=== PATIENT | female | born 1960 | race Hispanic/Latino ===

== ENCOUNTER 2016-07-31 14:21 | Emergency (ER) | payer OTHER, SELFPAY ==
[~2016-07-31] VITALS: Ht 167.6 cm; Wt 86.2 kg
[~2016-07-31 14:21] MED LIST: HYDR12.55 PO; IRON325T PO; LOSA25TA8 PO; MIRA3350 PO
[2016-07-31 16:38] LABS: BASO % 0.5 % (0.0-1.0); EOS # 0.1 K/mm3 (0.0-0.50); EOS % 1.1 % (0.0-3.0); LARGE UNSTAINED CELL # 0.1 K/mm3 (0.0-0.4); LARGE UNSTAINED CELL % 2.1 % (0.0-4.0); LYMPH # 2.2 K/mm3 (1.5-4.5); LYMPH % 34.1 % (24.0-44.0); MEAN CORPUSCULAR HEMOGLOBIN 24.8 pg (27.0-33.0); MEAN CORPUSCULAR HGB CONC 31.3 g/dl (32.0-36.5); MEAN CORPUSCULAR VOLUME 79.1 fl (80.0-96.0); MONO # 0.4 K/mm3 (0.0-0.8); MONO % 6.3 % (0.0-5.0); NEUTROPHILS # 3.5 K/mm3 (1.8-7.7); PLATELET COUNT, AUTOMATED 309 k/mm3 (150-450); RED CELL DISTRIBUTION WIDTH 14.6 % (11.5-14.5); WHITE BLOOD COUNT 6.3 K/mm3 (4.0-10.0)
--- NOTE | 2016-07-31 16:41 | REP ---
Clinical: Chest pain. Comparison: 05/17/2015. Findings: The mediastinum and cardiac silhouette are stable and within normal limits for portable technique. The lung hendrix are clear without acute consolidation, effusion, or pneumothorax. Skeletal structures are intact. Impression: Normal portable chest x-ray Signed by Destin Fowler MD 07/31/2016 04:32 P
[2016-07-31 16:42] LABS: ANION GAP 5 MEQ/L (8-16); BLOOD UREA NITROGEN 14 MG/DL (7-18); CALCIUM LEVEL 8.6 MG/DL (8.5-10.1); CARBON DIOXIDE LEVEL 28 MEQ/L (21-32); CHLORIDE LEVEL 106 MEQ/L (98-107); CREATININE FOR GFR 0.73 MG/DL (0.55-1.02); GLOMERULAR FILTRATION RATE > 60.0 (>51); GLUCOSE, FASTING 76 MG/DL (70-105); POTASSIUM SERUM 4.6 MEQ/L (3.5-5.1); SODIUM LEVEL 139 MEQ/L (136-145)
[2016-07-31 18:20] VITALS: BP 144/85
--- NOTE | 2016-08-01 08:02 | ECGEPIP ---
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
--- NOTE | 2016-08-01 08:09 | ECGEPIP ---
Stationary ECG Study 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
== END 2016-07-31 18:22 | disposition home or self-care (01) ==
LOC: M ED 17:15
DX: R07.89 Other chest pain (principal); I10 Essential (primary) hypertension; Z79.899 Other long term (current) drug therapy

== ENCOUNTER → 2016-10-11 | Outpatient (CLI) | payer OTHER, SELFPAY ==
--- NOTE | 2016-10-11 19:02 | REP ---
Left clavicle: 10/11/2016: Clinical history: Pain. Two views of the clavicle show the AC joint without widening or elevation. There is no fracture or focal lesion of the clavicle. There is a bone island in the humeral head. Visualized scapula and ribs intact. Impression: 1. Negative right clavicle for fracture or focal bone lesion or other acute finding. Signed by Myke Chicas MD 10/11/2016 10:30 P
--- NOTE | 2016-10-11 19:05 | REP ---
Left shoulder, complete: 10/11/2016: Comparison: Humerus and clavicle x-rays this date. Clinical history: Acute pain of the left shoulder. Findings AC joint clavicle grossly intact. Scapula, ribs and glenohumeral joint without acute finding. There is no subluxation, dislocation. Small bone island in the humeral head. Sclerotic appearance and thickening of the cortex of the anteromedial humerus near the pectoralis insertion. Remainder the visible humeral shaft unremarkable. Impression: 1. No fracture, subluxation, AC or glenohumeral joint degenerative change. A benign bone island seen in the left humeral head. 2. This focal thickening of the anterior cortex proximal humerus with subtle lucency within it. This is near the insertion of the pectoralis muscle. This is not definitely an acute finding, but on her portable chest 05/17/2015, I cannot see definite evidence of this finding. This represents thickened periosteal reaction from tug lesion or other pathology. Recommend orthopedic follow-up to determine further evaluation and workup. She may eventually need routine MRI without and with contrast. Signed by Myke Chicas MD 10/11/2016 10:31 P
--- NOTE | 2016-10-11 19:16 | REP ---
Left hand complete: 10/11/2016: No prior study. Clinical history: Left hand pain. Distal radius and ulna show lucency in the radial styloid at its base suggesting a bone cyst that is sharply defined and sclerotic in the sharply defined sclerotic. No expansion of the bone or destructive lesion. Carpal bones and their joint spaces are preserved. There is extensive degenerative change at the first CMC joint with marginal osteophytes. Fragmentation of bone presenting a severe osteoarthritic change. The other metacarpals and the CMC joints were grossly intact. The MCP and IP joints intact. Impression: 1. 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 I do not see visible or displaced acute fracture. Some bone fragments adjacent to the first CMC joint are noted as portion of this advanced degenerative process. Signed by Myke Chicas MD 10/11/2016 10:31 P
--- NOTE | 2016-10-11 19:20 | REP ---
Left humerus, complete: 10/11/2016. Comparison: Left shoulder this date, portable chest 05/17/2015. Two views of the humerus shows a zone of solid periosteal reaction with smooth margins and a subtle lucency within it. This is along the anterior proximal humeral cortex. No destruction of the cortex or endosteal scalloping. There is a small bone island in the humeral head. The shaft of the humerus and distal humerus are otherwise normal. Impression: 1. Solid periosteal reaction in the proximal humeral shaft anteriorly. It may represent a tug lesion of the pectoralis insertion or other pathology such as osteoid osteoma among several possibilities. It has nonaggressive features. Orthopedic followup to direct further workup and evaluation is suggested. Signed by Myke Chicas MD 10/11/2016 10:31 P
--- NOTE | 2016-10-11 20:52 | REP ---
LEFT FEMUR SERIES, COMPLETE: 10/11/2016: Clinical history: Pain. Findings: There were no prior studies. Four view show the femoral shaft intact. There is a fabella behind the lateral femoral condyle which is an anatomic variation. Hip and knee show no fracture, erosion or avulsion. Very minimal degenerative spurs at the margins are seen at each joint. No abnormal soft tissue calcification. Impression: 1. No fracture, destructive lesion or other acute bony finding about the femur. Very minimal degenerative change is seen. Signed by Myke Chicas MD 10/11/2016 10:38 P
== END ==
LOC: M LRY 17:31
PROVIDERS: ATTEND Physician Assistant
DX: M89.8X1 Other specified disorders of bone, shoulder (principal); M79.642 Pain in left hand; M79.622 Pain in left upper arm; M25.512 Pain in left shoulder; M85.442 Solitary bone cyst, left hand; M19.042 Primary osteoarthritis, left hand

== ENCOUNTER 2017-01-27 21:59 | Emergency (ER) | payer OTHER ==
[~2017-01-27] VITALS: Ht 167.6 cm; Wt 90.0 kg
[2017-01-27 22:58] LABS: BASO % 0.5 % (0.0-1.0); EOS # 0.1 10^3/uL (0.0-0.50); EOS % 0.6 % (0.0-3.0); IMMATURE GRANULOCYTE % 0.4 % (0-0); LYMPH # 2.9 10^3/uL (1.5-4.5); MEAN CORPUSCULAR HEMOGLOBIN 24.2 pg (27.0-33.0); MEAN CORPUSCULAR HGB CONC 30.6 g/dl (32.0-36.5); MEAN CORPUSCULAR VOLUME 79.1 fl (80.0-96.0); MONO # 0.4 10^3/uL (0.0-0.8); MONO % 4.7 % (0.0-5.0); NEUTROPHILS # 4.8 10^3/uL (1.8-7.7); NEUTROPHILS % 58.8 % (36.0-66.0); PLATELET COUNT, AUTOMATED 359 10^3/uL (150-450); RED CELL DISTRIBUTION WIDTH 16.7 % (11.5-14.5); WHITE BLOOD COUNT 8.2 10^3/uL (4.0-10.0)
[2017-01-27] MEDS ORDERED: ASPIRIN 81 MG CHEW TABLET PO ONE (23:00)
[2017-01-27] MEDS ORDERED: hydroCHLOROthiazide 12.5 MG CAPSULE PO ONE (23:00)
[2017-01-27] MEDS: NITROGLYCERIN 0.4 MG SUBL TABLET SL PRN ×3 (23:08→23:18)
[2017-01-27 23:16] LABS: ALBUMIN 3.8 GM/DL (3.2-5.2); ALBUMIN/GLOBULIN RATIO 0.88 (1.00-1.93); ALKALINE PHOSPHATASE 131 U/L (45-117); ALT/SGPT 23 U/L (12-78); ANION GAP 5 MEQ/L (8-16); AST/SGOT 16 U/L (7-37); BILIRUBIN,DIRECT < 0.1 MG/DL (0.0-0.2); BILIRUBIN,TOTAL 0.2 MG/DL (0.2-1.0); BLOOD UREA NITROGEN 12 MG/DL (7-18); CARBON DIOXIDE LEVEL 28 MEQ/L (21-32); CHLORIDE LEVEL 106 MEQ/L (98-107); CREATININE FOR GFR 0.66 MG/DL (0.55-1.02); GLOMERULAR FILTRATION RATE > 60.0 (>51); GLUCOSE, FASTING 123 MG/DL (70-105); POTASSIUM SERUM 3.5 MEQ/L (3.5-5.1); SODIUM LEVEL 139 MEQ/L (136-145); TOTAL PROTEIN 8.1 GM/DL (6.4-8.2)
[2017-01-27] MEDS ORDERED: ACETAMINOPHEN TAB 650MG DOSE (2X325MG) PO ONE (23:45)
[2017-01-28 05:35] VITALS: BP 150/79
--- NOTE | 2017-01-28 05:50 | ECGEPIP ---
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
--- NOTE | 2017-01-28 05:51 | ECGEPIP ---
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
--- NOTE | 2017-01-28 07:42 | REP ---
Clinical: Chest pain . Comparison: 07/31/2016 . Technique: PA and lateral. Findings: The mediastinum and cardiac silhouette are normal. The lung hendrix are clear and without acute consolidation, effusion, or pneumothorax. The skeletal structures are intact and normal. Impression: 1. No acute cardiopulmonary process. Signed by Destin Fowler MD 01/28/2017 07:34 A
== END 2017-01-28 05:51 | disposition home or self-care (01) ==
LOC: M ED 21:59
DX: R07.9 Chest pain, unspecified (principal); I10 Essential (primary) hypertension

== ENCOUNTER → 2017-04-10 | Outpatient (REF) | payer OTHER, MEDICAID ==
[2017-04-10 14:04] LABS: ALBUMIN 3.7 GM/DL (3.2-5.2); ALBUMIN/GLOBULIN RATIO 0.93 (1.00-1.93); ALKALINE PHOSPHATASE 131 U/L (45-117); ALT/SGPT 21 U/L (12-78); ANION GAP 9 MEQ/L (8-16); AST/SGOT 16 U/L (7-37); BILIRUBIN,TOTAL 0.3 MG/DL (0.2-1.0); BLOOD UREA NITROGEN 10 MG/DL (7-18); CALCIUM LEVEL 8.8 MG/DL (8.5-10.1); CARBON DIOXIDE LEVEL 24 MEQ/L (21-32); CHLORIDE LEVEL 106 MEQ/L (98-107); CHOLESTEROL LEVEL 179 MG/DL (<200); CREATININE FOR GFR 0.57 MG/DL (0.55-1.30); GLOMERULAR FILTRATION RATE > 60.0 (>51); GLUCOSE, FASTING 82 MG/DL (70-100); HDL CHOLESTEROL 50 MG/DL (>40); NON-HDL-C 129 MG/DL; POTASSIUM SERUM 4.6 MEQ/L (3.5-5.1); SODIUM LEVEL 139 MEQ/L (136-145); TOTAL PROTEIN 7.7 GM/DL (6.4-8.2); TRIGLYCERIDES LEVEL 85 MG/DL (<150)
== END ==
LOC: M LAB REF 12:41
DX: Z00.01 Encounter for general adult medical examination with abnormal findings (principal); E78.5 Hyperlipidemia, unspecified

== ENCOUNTER 2018-01-30 20:48 | Emergency (ER) | payer OTHER, MEDICAID ==
[2018-01-30] MEDS: IBUPROFEN 800 MG TAB PO (21:28)
== END 2018-01-30 22:42 | disposition home or self-care (01) ==
LOC: M ED 20:48
DX: M72.2 Plantar fascial fibromatosis (principal); X50.1XXA Overexertion from prolonged static or awkward postures, initial encounter; Y92.480 Sidewalk as the place of occurrence of the external cause; I10 Essential (primary) hypertension; M77.32 Calcaneal spur, left foot; I48.91 Unspecified atrial fibrillation; Z79.899 Other long term (current) drug therapy
CPT/HCPCS: 73650

== ENCOUNTER 2018-08-24 21:09 | Emergency (ER) | payer OTHER ==
[~2018-08-24] VITALS: Ht 167.6 cm; Wt 86.4 kg
[~2018-08-24 21:09] MED LIST changes: +IBUP80TA PO; +LOSA25TA14 PO; -LOSA25TA8 PO; +LOSA50TA88; +METO1TAB87
[2018-08-24] MEDS ORDERED: methylPREDNISolone INJ 125 MG/2 ML VIAL (J2930) IV ONE (21:45)
[2018-08-24 22:09] LABS: BASO % 0.4 % (0.0-1.0); EOS # 0.1 10^3/uL (0.0-0.50); EOS % 1.1 % (0.0-3.0); HEMATOCRIT 40.5 % (36.0-47.0); HEMOGLOBIN 13.1 g/dl (12.0-15.5); LYMPH % 38.1 % (24.0-44.0); MEAN CORPUSCULAR HEMOGLOBIN 29.5 pg (27.0-33.0); MEAN CORPUSCULAR HGB CONC 32.3 g/dl (32.0-36.5); MEAN CORPUSCULAR VOLUME 91.2 fl (80.0-96.0); MONO # 0.6 10^3/uL (0.0-0.8); MONO % 7.2 % (0.0-5.0); NEUTROPHILS # 4.2 10^3/uL (1.8-7.7); NEUTROPHILS % 53.1 % (36.0-66.0); PLATELET COUNT, AUTOMATED 287 10^3/uL (150-450); RED BLOOD COUNT 4.44 10^6/uL (4.00-5.40); WHITE BLOOD COUNT 7.9 10^3/uL (4.0-10.0)
[2018-08-24 22:23] LABS: PROTHROMBIN TIME 13.3 SECONDS (12.1-14.4)
[2018-08-24 22:24] LABS: PARTIAL THROMBOPLASTIN TIME 28.4 SECONDS (25.4-37.6)
[2018-08-24 22:27] LABS: BLOOD UREA NITROGEN 15 MG/DL (7-18); CALCIUM LEVEL 8.9 MG/DL (8.5-10.1); CARBON DIOXIDE LEVEL 32 MEQ/L (21-32); CHLORIDE LEVEL 104 MEQ/L (98-107); CREATININE FOR GFR 0.92 MG/DL (0.55-1.30); GLOMERULAR FILTRATION RATE > 60.0 (>51); GLUCOSE, FASTING 110 MG/DL (70-100); SODIUM LEVEL 141 MEQ/L (136-145)
--- NOTE | 2018-08-24 23:41 | REPVR ---
EXAM: CT Head Without Contrast EXAM DATE/TIME: 08/24/2018 10:42 PM CLINICAL HISTORY: 58 years old, female; Pain; Headache; Additional info: Headache, left arm parethesias/weakness TECHNIQUE: Imaging protocol: Axial computed tomography images of the head without contrast. Radiation optimization: All CT scans at this facility use at least one of these dose optimization techniques: automated exposure control; mA and/or kV adjustment per patient size (includes targeted exams where dose is matched to clinical indication); or iterative reconstruction. COMPARISON: No relevant prior studies available. FINDINGS: Brain: Normal. No hemorrhage. Unremarkable white matter. No mass effect. Ventricles: Normal. No ventriculomegaly. Bones/joints: Unremarkable. No acute fracture. Sinuses: Visualized sinuses are unremarkable. No fluid levels. Mastoid air cells: Visualized mastoid air cells are well aerated. No mastoid effusion. Soft tissues: Unremarkable. IMPRESSION: No acute intracranial abnormality. Electronically signed by: Tiff Estes On 08/24/2018 23:41:20 PM
--- NOTE | 2018-08-24 23:43 | REPVR ---
EXAM: CT Cervical Spine Without Contrast EXAM DATE/TIME: 08/24/2018 10:42 PM CLINICAL HISTORY: 58 years old, female; Neck pain; Additional info: Headache, left arm parethesias/weakness TECHNIQUE: Imaging protocol: Axial computed tomography images of the cervical spine without contrast. Coronal and sagittal reformatted images were created and reviewed. Radiation optimization: All CT scans at this facility use at least one of these dose optimization techniques: automated exposure control; mA and/or kV adjustment per patient size (includes targeted exams where dose is matched to clinical indication); or iterative reconstruction. COMPARISON: No relevant prior studies available. FINDINGS: Vertebrae: No acute fracture. Normal alignment. Straightening of normal cervical lordosis either secondary to muscular spasm or positioning. Degenerative changes with anterior osteophyte formation at C4-T1. Discs/Spinal canal/Neural foramina: No spinal stenosis. No neural foraminal narrowing. Soft tissues: Unremarkable. Lungs: Lung apices are normal. IMPRESSION: No acute findings. Electronically signed by: Tiff Estes On 08/24/2018 23:43:17 PM
[2018-08-25] MEDS ORDERED: PRED20TA PO (00:30)
[2018-08-25 00:46] VITALS: BP 136/64
--- NOTE | 2018-08-25 07:06 | ECGEPIP ---
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
== END 2018-08-25 00:47 | disposition home or self-care (01) ==
LOC: M ED 21:09
DX: M54.12 Radiculopathy, cervical region (principal); I10 Essential (primary) hypertension; R00.2 Palpitations
CPT/HCPCS: 36415; 70450; 72125; 80048; 85025; 85610; 85730; 93005; 96374; 99285; J2930

== ENCOUNTER 2020-05-10 14:55 | Emergency (ER) | payer OTHER ==
[~2020-05-10] VITALS: Ht 167.6 cm; Wt 95.7 kg
[~2020-05-10 14:55] MED LIST changes: +PRED20TA PO
--- NOTE | 2020-05-10 15:31 | REP ---
INDICATION: trauma COMPARISON: None. TECHNIQUE: Internal rotation, external rotation, and Y view. FINDINGS: No acute fracture or dislocation. The acromioclavicular and glenohumeral joints are intact. Surrounding soft tissues are unremarkable. IMPRESSION: No acute fracture or dislocation. <Electronically signed by Destin Fowler > 05/10/20 [id number]
[2020-05-10 15:52] VITALS: BP 178/84
[2020-05-10] MEDS ORDERED: ACETAMINOPHEN 500 MG TAB PO ONE (16:10)
[2020-05-10] MEDS ORDERED: TIZA4CAP PO (16:52)
[2020-05-10] MEDS ORDERED: IBUP-1022 PO (16:52)
[2020-05-10] MEDS ORDERED: AMOX500C PO (16:52)
[2020-05-10] MEDS ORDERED: MAGICMW SSP (16:53)
== END 2020-05-10 17:09 | disposition home or self-care (01) ==
LOC: M ED 14:55
DX: S49.92XA Unspecified injury of left shoulder and upper arm, initial encounter (principal); X50.1XXA Overexertion from prolonged static or awkward postures, initial encounter; Y92.9 Unspecified place or not applicable; Y93.9 Activity, unspecified; Y99.9 Unspecified external cause status; J02.0 Streptococcal pharyngitis; I10 Essential (primary) hypertension
CPT/HCPCS: 73030; 87880; 99284; U0003

== ENCOUNTER → 2020-09-27 | Outpatient (CLI) | payer OTHER ==
[~2020-09-27] MED LIST changes: +AMOX500C PO; +IBUP-1022 PO; +MAGICMW SSP; +PROHANCE 279.3MG/ML 15ML VIAL As Ordered ONE; +PROHANCE 279.3MG/ML 5ML VIAL As Ordered ONE; +TIZA4CAP PO
--- NOTE | 2020-09-27 15:17 | REP ---
INDICATION: LT SHOULDER TRAUMA W/ PAIN ? RCT. COMPARISON: Radiographs 05/10/2020. TECHNIQUE: Coronal oblique T1, T2 fat sat, sagittal oblique T2 fat sat, axial T2 fat sat, gradient echo. T1 fat-sat images are performed prior to and following the intravenous administration of 17 mL ProHance. FINDINGS: Rotator cuff: There is extensive tendinopathy, with an extensive undersurface tear of the supraspinatus tendon. I do not see definite extension through the bursal surface of the tendon. There is a partial undersurface tear of the infraspinatus tendon. There is a partial tear of the subscapularis tendon. Acromioclavicular joint: There are mild hypertrophic degenerative changes of the acromioclavicular joint. There is mild fluid in the joint. Acromion: Type 2 Biceps Tendon: In bicipital groove, no tenosynovitis. Hill Sach's deformity: None. Deltoid muscle: No abnormal signal. Biceps labral complex: There is tear of the base of the biceps labral complex. Labrum: There is a diffuse SLAP tear. Cartilage: No defects. Bone marrow: There are scattered subcortical cysts in the humeral head. There is no bone marrow edema. Joint fluid: No effusion. There is a 1 cm benign cortical lesion of the medial proximal humeral diaphysis approximately 1 cm in diameter. The cortex is diffusely intact and low in signal. There is no associated enhancement or edema. IMPRESSION: Extensive tendinopathy supraspinatus tendon with an extensive undersurface tear. Partial undersurface tear infraspinatus tendon. Partial tear subscapularis tendon. Mild hypertrophic degenerative change acromioclavicular joint with a type 2 acromion. Diffuse SLAP tear also involves the base of the biceps labral complex. There is a 1 cm benign cortical lesion of the proximal shaft of the humerus medially measuring 1 cm in diameter. <Electronically signed by Bobo Cummins > 09/27/20 [id number]
== END ==
LOC: M RAD 12:47
PROVIDERS: ATTEND Orthopaedic Surgery
DX: M75.32 Calcific tendinitis of left shoulder (principal)

== ENCOUNTER 2020-11-21 11:42 | Emergency (ER) | payer MEDICAID, OTHER ==
[~2020-11-21] VITALS: Ht 167.6 cm; Wt 92.5 kg
[~2020-11-21 11:42] MED LIST changes: -PROHANCE 279.3MG/ML 15ML VIAL As Ordered ONE; -PROHANCE 279.3MG/ML 5ML VIAL As Ordered ONE
[2020-11-21] MEDS ORDERED: CHLO50TA (17:01)
[2020-11-21 17:46] LABS: RSV AMPLIFICATION NEGATIVE (NEGATIVE)
[2020-11-21] MEDS ORDERED: AMOX500C PO (18:42)
[2020-11-21 18:49] VITALS: BP 137/60
== END 2020-11-21 18:48 | disposition home or self-care (01) ==
LOC: M ED 11:42
DX: J02.0 Streptococcal pharyngitis (principal); R05 Cough; Z20.822 Contact with and (suspected) exposure to COVID-19; I10 Essential (primary) hypertension

== ENCOUNTER → 2020-12-12 | Outpatient (CLI) | payer OTHER ==
[~2020-12-12] MED LIST changes: +CHLO50TA
--- NOTE | 2020-12-12 14:50 | REP ---
INDICATION: PAIN IN RIGHT ANKLE AND JOINTS OF RIGHT FOOT COMPARISON: None. TECHNIQUE: AP, lateral, bilateral oblique views. FINDINGS: Osseous structures, joint spaces, and surrounding soft tissues are relatively age-appropriate and within normal limits. Mild soft tissue swelling cannot be excluded. Ankle mortise appears intact. Lateral view demonstrates moderate calcaneal heel spur. IMPRESSION: Relatively age-related changes as described above. Questionable mild soft tissue swelling. <Electronically signed by Destin Fowler > 12/12/20 [id number]
--- NOTE | 2020-12-12 14:56 | REP ---
INDICATION: PAIN IN RIGHT ANKLE AND JOINTS OF RIGHT FOOT COMPARISON: None. TECHNIQUE: AP, lateral, coned-down views of the lumbar spine. FINDINGS: Alignment and lordosis maintained without acute fracture/compression injury or subluxation. Moderate/early advanced multilevel degenerative changes includes endplate sclerosis, disc space narrowing, osteophytosis and facet hypertrophy. IMPRESSION: 1. No acute fracture / compression injury or subluxation. 2. Moderate/early advanced multilevel degenerative spondylosis. <Electronically signed by Destin Fowler > 12/12/20 [id number]
--- NOTE | 2020-12-12 14:57 | REP ---
INDICATION: PAIN IN RIGHT ANKLE AND JOINTS OF RIGHT FOOT COMPARISON: None. TECHNIQUE: AP, lateral, bilateral oblique views right foot. FINDINGS: The osseous structures and joint spaces are intact and essentially age-appropriate. Small calcaneal heel spur noted. There is no evidence for acute fracture or dislocation. Surrounding soft tissues are unremarkable. No subcutaneous emphysema or radiodense foreign body. IMPRESSION: Age-appropriate examination. No acute fracture or dislocation. <Electronically signed by Destin Fowler > 12/12/20 [id number]
== END ==
LOC: M RAD 13:56
PROVIDERS: ATTEND Physician Assistant
DX: M25.541 Pain in joints of right hand (principal); M54.59 Other low back pain

== ENCOUNTER → 2021-02-05 | Outpatient (CLI) | payer OTHER ==
[~2021-02-05] MED LIST changes: +LOSA25TA13 PO; -LOSA25TA14 PO; +LOSA50TA28; -LOSA50TA88
== END ==
LOC: M WHC 12:55
PROVIDERS: ATTEND Pediatrics
DX: Z12.31 Encounter for screening mammogram for malignant neoplasm of breast (principal)

== ENCOUNTER → 2021-05-11 | Outpatient (CLI) | payer OTHER | LOC: M RAD 16:19 | PROVIDERS: ATTEND Pediatrics | DX: N89.8 Other specified noninflammatory disorders of vagina (principal) ==

== ENCOUNTER → 2021-05-18 | Outpatient (CLI) | payer OTHER | LOC: M WHC 14:32 | PROVIDERS: ATTEND Pediatrics | DX: Z13.820 Encounter for screening for osteoporosis (principal); M81.0 Age-related osteoporosis without current pathological fracture ==

== ENCOUNTER → 2021-08-15 | Outpatient (REF) | LOC: M PLALAB 10:14 | PROVIDERS: ATTEND Internal Medicine | DX: Z00.00 Encounter for general adult medical examination without abnormal findings (principal) ==

== ENCOUNTER 2021-11-25 20:45 | Emergency (ER) | payer OTHER ==
[~2021-11-25] VITALS: Ht 167.6 cm; Wt 200.0 kg
[2021-11-25] MEDS ORDERED: LOSA50TA28 PO (20:52)
[2021-11-25] MEDS ORDERED: K-TA10TA2 PO (20:52)
[2021-11-25] MEDS ORDERED: MAGN400T2 PO (20:52)
[2021-11-26] MEDS ORDERED: KETOROLAC 60MG 2ML VIAL IM ONE (00:50)
[2021-11-26 01:07] VITALS: BP 125/62
== END 2021-11-26 01:11 | disposition home or self-care (01) ==
LOC: M ED 20:45
DX: M54.50 Low back pain, unspecified (principal); M54.2 Cervicalgia; M25.512 Pain in left shoulder; M25.532 Pain in left wrist; W10.9XXA Fall (on) (from) unspecified stairs and steps, initial encounter
CPT/HCPCS: 70450; 72125; 73030; 96372; 99283; J1885

== ENCOUNTER 2022-03-05 16:29 | Emergency (ER) | payer OTHER ==
[~2022-03-05] VITALS: Ht 167.6 cm; Wt 94.4 kg
[~2022-03-05 16:29] MED LIST changes: +K-TA10TA2 PO; +LOSA50TA28 PO; +MAGN400T2 PO
[2022-03-05 16:30] VITALS: BP 150/76
== END 2022-03-05 19:45 | disposition left against medical advice (07) ==
LOC: M ED 16:29
DX: Z53.21 Procedure and treatment not carried out due to patient leaving prior to being seen by health care provider (principal)

== ENCOUNTER 2022-05-16 11:20 | Emergency (ER) | payer OTHER ==
[~2022-05-16] VITALS: Ht 167.6 cm; Wt 92.7 kg
[~2022-05-16 11:20] MED LIST changes: -AMOX875T2 PO
[2022-05-16] MEDS ORDERED: AMPICILLIN SOD/SULBACTAM SOD 3 GM in D5W MINI-BAG PLUS 100 ML IV ONE (12:30)
[2022-05-16] MEDS ORDERED: NS 1,000 ML IV ONE (12:30)
[2022-05-16] MEDS ORDERED: KETOROLAC 30 MG/ML 1ML VIAL IV ONE (12:30)
[2022-05-16 12:57] LABS: BASO % 0.3 % (0.0-1.0); EOS % 0.3 % (0.0-3.0); HEMATOCRIT 40.5 % (36.0-47.0); LYMPH # 2.3 10^3/uL (1.5-5.0); LYMPH % 19.8 % (24.0-44.0); MEAN CORPUSCULAR HEMOGLOBIN 28.8 pg (27.0-33.0); MEAN CORPUSCULAR HGB CONC 32.1 g/dl (32.0-36.5); MEAN CORPUSCULAR VOLUME 89.8 fl (80.0-96.0); MONO # 0.8 10^3/uL (0.0-0.8); MONO % 6.6 % (2.0-8.0); NEUTROPHILS # 8.5 10^3/uL (1.5-8.5); NEUTROPHILS % 72.6 % (36.0-66.0); PLATELET COUNT, AUTOMATED 309 10^3/uL (150-450); RED BLOOD COUNT 4.51 10^6/uL (4.00-5.40); WHITE BLOOD COUNT 11.8 10^3/uL (4.0-10.0)
[2022-05-16 13:29] LABS: BLOOD UREA NITROGEN 11 MG/DL (9-23); CALCIUM LEVEL 8.9 MG/DL (8.3-10.6); CARBON DIOXIDE LEVEL 32 MMOL/L (20-31); CHLORIDE LEVEL 98 MMOL/L (98-107); CREATININE FOR GFR 0.56 MG/DL (0.55-1.30); GLOMERULAR FILTRATION RATE > 60.0 (>45); GLUCOSE, FASTING 85 MG/DL (74-106); POTASSIUM SERUM 3.6 MMOL/L (3.5-5.1); SODIUM LEVEL 137 MMOL/L (136-145)
[2022-05-16 13:39] LABS: MONO SCRN NEGATIVE (NEGATIVE)
[2022-05-16] MEDS ORDERED: IBUP-1022 PO (14:03)
[2022-05-16] MEDS ORDERED: AMOX875T2 PO (14:03)
[2022-05-16 14:10] VITALS: BP 141/75
== END 2022-05-16 14:13 | disposition home or self-care (01) ==
LOC: M ED 11:20
DX: J03.90 Acute tonsillitis, unspecified (principal)
CPT/HCPCS: 80048; 85025; 86308; 96374; 96375; 99283; J0295; J1100; J1885

== ENCOUNTER → 2022-05-16 | Outpatient (REF) | payer OTHER ==
[~2022-05-16] MED LIST changes: +AMOX875T2 PO
== END ==
LOC: M LAB REF 12:18
PROVIDERS: ATTEND Nurse Practitioner Family
DX: R07.0 Pain in throat (principal)

== ENCOUNTER → 2022-12-11 | Outpatient (REF) | payer OTHER ==
[~2022-12-11] MED LIST changes: +AMOX875T2 PO; -K-TA10TA2 PO; +POTA-165 PO
[2022-12-11 17:40] LABS: BASO # 0.1 10^3/uL (0.0-0.2); BASO % 0.7 % (0.0-1.0); EOS # 0.1 10^3/uL (0.0-0.5); EOS % 1.5 % (0.0-3.0); HEMATOCRIT 40.3 % (36.0-47.0); HEMOGLOBIN 13.5 g/dl (12.0-15.5); LYMPH # 2.6 10^3/uL (1.5-5.0); LYMPH % 34.7 % (24.0-44.0); MEAN CORPUSCULAR HEMOGLOBIN 29.7 pg (27.0-33.0); MEAN CORPUSCULAR HGB CONC 33.5 g/dl (32.0-36.5); MEAN CORPUSCULAR VOLUME 88.8 fl (80.0-96.0); MONO # 0.5 10^3/uL (0.0-0.8); MONO % 7.1 % (2.0-8.0); NEUTROPHILS # 4.1 10^3/uL (1.5-8.5); NEUTROPHILS % 55.9 % (36.0-66.0); PLATELET COUNT, AUTOMATED 316 10^3/uL (150-450); RED BLOOD COUNT 4.54 10^6/uL (4.00-5.40); WHITE BLOOD COUNT 7.4 10^3/uL (4.0-10.0)
[2022-12-11 18:00] LABS: CREATININE, URINE 151.6 MG/DL; MAU/CREAT RATIO 5.9 MCG/MG (0.0-30.0)
[2022-12-11 18:01] LABS: BLOOD UREA NITROGEN 17 MG/DL (9-23); CALCIUM LEVEL 9.5 MG/DL (8.3-10.6); CARBON DIOXIDE LEVEL 32 MMOL/L (20-31); CHLORIDE LEVEL 103 MMOL/L (98-107); CHOLESTEROL LEVEL 175 MG/DL (<200); CHOLESTEROL RISK RATIO 4.14 (<5); CREATININE FOR GFR 0.61 MG/DL (0.55-1.30); GLOMERULAR FILTRATION RATE > 60.0 (>45); GLUCOSE, FASTING 90 MG/DL (74-106); HDL CHOLESTEROL 42.2 MG/DL (>40); LDL CHOLESTEROL 105.2 MG/DL (<100); NON-HDL-C 132.8 MG/DL; POTASSIUM SERUM 3.6 MMOL/L (3.5-5.1); SODIUM LEVEL 140 MMOL/L (136-145); TRIGLYCERIDES LEVEL 138 MG/DL (<150)
[2022-12-11 19:56] LABS: CREATININE, URINE 151.9 MG/DL; MAU/CREAT RATIO 5.9 MCG/MG (0.0-30.0)
== END ==
LOC: M LAB REF 16:19
PROVIDERS: ATTEND Pediatrics
DX: E78.5 Hyperlipidemia, unspecified (principal); I10 Essential (primary) hypertension

== ENCOUNTER 2023-03-06 14:17 | Emergency (ER) | payer OTHER, SELFPAY ==
[~2023-03-06] VITALS: Ht 167.6 cm; Wt 94.4 kg
[2023-03-06] MEDS ORDERED: FLUTISP (14:33)
[2023-03-06 16:02] LABS: RSV AMPLIFICATION NEGATIVE (NEGATIVE)
[2023-03-06 16:31] VITALS: TEMP 97.9
[2023-03-06] MEDS: ACETAMINOPHEN 325 MG TAB PO ONE (16:43)
[2023-03-06 17:36] VITALS: BP 160/82; O2SAT 100
== END 2023-03-06 17:37 | disposition home or self-care (01) ==
LOC: M ED 14:17
DX: B34.9 Viral infection, unspecified (principal); I10 Essential (primary) hypertension; Z79.899 Other long term (current) drug therapy

== ENCOUNTER → 2023-09-15 | Outpatient (CLI) | payer OTHER ==
[~2023-09-15] MED LIST changes: +FLUTISP
[2023-09-15 17:52] LABS: THYROID STIMULATING HORMONE 2.012 uIU/ML (0.55-4.78)
[2023-09-15 17:54] LABS: BLOOD UREA NITROGEN 15 MG/DL (9-23); CALCIUM LEVEL 9.2 MG/DL (8.3-10.6); CARBON DIOXIDE LEVEL 29 MMOL/L (20-31); CHLORIDE LEVEL 107 MMOL/L (98-107); CREATININE FOR GFR 0.63 MG/DL (0.55-1.30); GLOMERULAR FILTRATION RATE > 60.0 (>45); GLUCOSE, FASTING 81 MG/DL (74-106); POTASSIUM SERUM 4.4 MMOL/L (3.5-5.1); SODIUM LEVEL 141 MMOL/L (136-145)
[2023-09-15 18:03] LABS: CREATININE, URINE 152.5 MG/DL; MAU/CREAT RATIO 3.9 MCG/MG (0.0-30.0)
== END ==
LOC: M RAD 14:53
PROVIDERS: ATTEND Pediatrics
DX: M70.61 Trochanteric bursitis, right hip (principal); I10 Essential (primary) hypertension; E78.5 Hyperlipidemia, unspecified; M16.11 Unilateral primary osteoarthritis, right hip

== ENCOUNTER 2023-11-14 11:04 | Emergency (ER) | payer OTHER ==
[~2023-11-14] VITALS: Ht 167.6 cm; Wt 94.3 kg
[2023-11-14 11:04] VITALS: TEMP 97.2
[2023-11-14] MEDS ORDERED: CICL6.6S (11:27)
[2023-11-14] MEDS ORDERED: CETI-24 (11:27)
[2023-11-14] MEDS: LIDOCAINE 1% MDV 20ML VIAL SC ONE (12:00)
[2023-11-14] MEDS: NAPROXEN 250 MG TAB PO ONE (12:42)
[2023-11-14] MEDS: diazePAM 5MG TABLET PO ONE (12:42)
[2023-11-14] MEDS ORDERED: LIDO5DIS41 TD (13:29)
[2023-11-14] MEDS ORDERED: NAPR-837 PO (13:29)
[2023-11-14] MEDS ORDERED: METH-1164 PO (13:29)
[2023-11-14 13:36] VITALS: BP 158/64; O2SAT 99
== END 2023-11-14 13:36 | disposition home or self-care (01) ==
LOC: M ED 11:04
DX: M62.838 Other muscle spasm (principal); I10 Essential (primary) hypertension; Z79.1 Long term (current) use of non-steroidal anti-inflammatories (NSAID); Z79.899 Other long term (current) drug therapy

== ENCOUNTER 2024-05-19 10:31 | Emergency (ER) | payer OTHER ==
[~2024-05-19] VITALS: Ht 167.6 cm; Wt 96.0 kg
[~2024-05-19 10:31] MED LIST changes: +CETI-24; +CICL6.6S; +LIDO5DIS41 TD; +METH-1164 PO; +NAPR-837 PO
[2024-05-19 12:53] VITALS: BP 186/92; TEMP 97.3; O2SAT 99
[2024-05-19 13:12] LABS: BLOOD UREA NITROGEN 15 MG/DL (9-23); CARBON DIOXIDE LEVEL 30 MMOL/L (20-31); CHLORIDE LEVEL 105 MMOL/L (98-107); CREATININE FOR GFR 0.51 MG/DL (0.55-1.30); GLOMERULAR FILTRATION RATE > 60.0 (>45); GLUCOSE, FASTING 87 MG/DL (74-106); POTASSIUM SERUM 4.3 MMOL/L (3.5-5.1); SODIUM LEVEL 142 MMOL/L (136-145)
== END 2024-05-19 13:29 | disposition home or self-care (01) ==
LOC: M ED 10:31
DX: M25.531 Pain in right wrist (principal); I45.10 Unspecified right bundle-branch block; Z79.1 Long term (current) use of non-steroidal anti-inflammatories (NSAID); Z79.899 Other long term (current) drug therapy

== ENCOUNTER → 2025-01-03 | Outpatient (REF) | payer OTHER ==
[~2025-01-03] MED LIST changes: -IBUP-1022 PO; +IBUP600T42 PO; +LIDO1ADH93 TD; -LIDO5DIS41 TD
[2025-01-03 13:16] LABS: CREATININE, URINE 143.9 MG/DL; MALB URINE SIEMENS 8.0 MG/L; MAU/CREAT RATIO 5.5 MCG/MG (0.0-30.0)
[2025-01-03 14:49] LABS: BASO # 0.0 10^3/uL (0.0-0.2); BASO % 0.4 % (0.0-1.0); EOS # 0.1 10^3/uL (0.0-0.5); EOS % 1.6 % (0.0-3.0); LYMPH # 2.0 10^3/uL (1.5-5.0); LYMPH % 29.5 % (24.0-44.0); MONO # 0.5 10^3/uL (0.0-0.8); MONO % 6.9 % (2.0-8.0); NEUTROPHILS # 4.2 10^3/uL (1.5-8.5); NEUTROPHILS % 61.5 % (36.0-66.0); PLATELET COUNT, AUTOMATED 333 10^3/uL (150-450)
[2025-01-03 14:58] LABS: ALT/SGPT 18 U/L (7.0-40); AST/SGOT 20 U/L (<34); CALCIUM LEVEL 9.5 MG/DL (8.3-10.6); CARBON DIOXIDE LEVEL 29 MMOL/L (20-31); CHLORIDE LEVEL 104 MMOL/L (98-107); CHOLESTEROL LEVEL 192 MG/DL (<200); CHOLESTEROL RISK RATIO 3.58 (<5); CREATININE FOR GFR 0.63 MG/DL (0.55-1.30); GLOMERULAR FILTRATION RATE > 90.0 (>45); LDL CHOLESTEROL 122.1 MG/DL (<100); NON-HDL-C 138.5 MG/DL; POTASSIUM SERUM 4.7 MMOL/L (3.5-5.1); SODIUM LEVEL 142 MMOL/L (136-145); TRIGLYCERIDES LEVEL 82 MG/DL (<150)
[2025-01-03 14:59] LABS: TOTAL 25(OH) VITAMIN D 21.1 NG/ML (20.0-100.0)
[2025-01-03 15:00] LABS: ESTIMATED AVERAGE GLUCOSE 120.0 MG/DL (60-110)
== END ==
LOC: M LAB REF 11:49
PROVIDERS: ATTEND Pediatrics
DX: I10 Essential (primary) hypertension (principal); E78.5 Hyperlipidemia, unspecified; E66.9 Obesity, unspecified; E55.9 Vitamin D deficiency, unspecified

== ENCOUNTER → 2025-02-08 | Outpatient (CLI) | payer OTHER | LOC: M WUC 14:04 | DX: M25.561 Pain in right knee (principal); M17.11 Unilateral primary osteoarthritis, right knee ==